=== PATIENT | female | born 1960 | race Caucasian/White ===

== ENCOUNTER 2016-11-20 16:55 | Emergency (ER) | payer BC ==
[2016-11-20 17:17] VITALS: TEMP 98.1
[2016-11-20] MEDS ORDERED: HYDROCODONE/APAP 5/325 TAB PO ONE (17:44)
[2016-11-20] MEDS ORDERED: IBUPROFEN 600 MG TAB PO ONE (17:44)
[2016-11-20] MEDS ORDERED: ONDANSETRON DISINTEGRATING 4 MG TAB PO ONE (17:49)
--- NOTE | 2016-11-20 17:54 | EDPHY ---
H & P Time Seen by Provider: 11/20/16 17:14 HPI/ROS: CHIEF COMPLAINT: right elbow pain HISTORY OF PRESENT ILLNESS: 56-year-old [id number] female presents emergency department complaining of right elbow pain. Patient reports she tripped and fell on her dress walking up stairs falling directly onto her right elbow. Patient states she felt like it dislocated and then packing placed. She has pain with any range of motion. She denies shoulder or wrist pain. She denies head strike, no neck pain, no numbness or tingling to her arm, no other complaints. Smoking Status: Former smoker Physical Exam: GEN: Awake, alert, oriented, no acute distress RESP: nl resp effort MSK: Right elbow with diffuse tenderness to palpation, no swelling, patient is guarding her arm with her elbow at 90 degrees. Patient lacks 40 degrees of extension and 40 degrees of flexion, pain with pronation and supination. 2+ radial pulses, sensation intact to light touch SKIN: No break in skin Constitutional: Initial Vital Signs Temperature (C) 36.7 C 11/20/16 17:13 Heart Rate 90 11/20/16 17:13 Respiratory Rate 18 11/20/16 17:13 Blood Pressure 170/112 H 11/20/16 17:13 O2 Sat (%) 96 11/20/16 17:13 O2 Delivery Mode Room Air Allergies/Adverse Reactions: clindamycin Allergy (Intermediate, Verified 11/20/16 17:18) Hives iodine Allergy (Intermediate, Verified 11/20/16 17:18) Swelling/neck,face,throat opium poppy [poppy seeds] Allergy (Intermediate, Verified 11/20/16 17:18) Swelling/neck,face,throat Penicillins Allergy (Intermediate, Verified 11/20/16 17:18) Hives shellfish derived Allergy (Intermediate, Verified 11/20/16 17:18) Vomiting Home Medications: Medication Instructions Recorded Amlodipine Besylate 11/20/16 Atorvastatin Calcium 11/20/16 Duloxetine HCl 11/20/16 Levothyroxine 11/20/16 Metformin HCl 11/20/16 Primadone 11/20/16 MDM/Departure - MDM Imaging Results: Imaging Impressions Elbow X-Ray 11/20/16 17:22 Impression: Negative for fracture. Humerus X-Ray 11/20/16 18:11 Impression: Right humerus negative for fracture. Imaging: I viewed and interpreted images myself Medications Given: Discontinued Medications Hydrocodone Bitart/Acetaminophen ([place] 5/325) 1 tab PO EDNOW ONE Stop: 11/20/16 17:45 Last Admin: 11/20/16 17:51 Dose: 1 tab Hydrocodone Bitart/Acetaminophen (York 5/325mg Prepack#6) 1 btl TAKEHOME EDNOW ONE Stop: 11/20/16 18:23 Last Admin: 11/20/16 18:44 Dose: 1 btl Ibuprofen (Motrin) 600 mg PO EDNOW ONE Stop: 11/20/16 17:45 Last Admin: 11/20/16 17:51 Dose: 600 mg Ondansetron HCl (Zofran Odt) 4 mg PO EDNOW ONE Stop: 11/20/16 17:50 Last Admin: 11/20/16 17:51 Dose: 4 mg ED Course/Re-evaluation: Patient with no evidence of fracture on x-ray, no joint effusion. She is placed in a sling and discharged with a York prepack. She is given Ortho for follow-up. She is given return precautions for any pain that is not controlled or neurovascular compromise. Patient is comfortable with this plan and discharged home with her . - Depart Disposition: Home, Routine, Self-Care Clinical Impression: Sprain of right elbow Qualifiers: Encounter type: initial encounter Qualified Code(s): S53.401A - Unspecified sprain of right elbow, initial encounter Condition: Good Instructions: Hydrocodone/Acetaminophen (By mouth), Elbow Sprain (ED) Additional Instructions: Wear sling for comfort, in 2 days come out of the sling with daily for range of motion of your elbow, straighten your elbow all the way and it slowly. Ice, elevate, take 600 mg of ibuprofen every 8 hours with food for 3-5 days, take hydrocodone for severe pain. Follow up with orthopedist at 1st available appointment. Call Tuesday to schedule this. Return to the emergency department for worsening symptoms, new symptoms or concerns. Referrals: Joe Crandall MD [Medical Doctor] - As per Instructions (Orthopedist on-call)
[2016-11-20] MEDS ORDERED: HYDROCOD/APAP 5/325 PREPACK#6 BTL TAKEHOME ONE (18:22)
[2016-11-20 18:52] VITALS: BP 135/101; PULSE 95; RESP 16; O2SAT 99
== END 2016-11-20 18:53 | disposition home or self-care (01) ==
DX: S53.401A Unspecified sprain of right elbow, initial encounter (principal); Z79.84 Long term (current) use of oral hypoglycemic drugs; Z87.891 Personal history of nicotine dependence; W01.0XXA Fall on same level from slipping, tripping and stumbling without subsequent striking against object, initial encounter
CPT/HCPCS: A4565